=== PATIENT | male | born 1940 ===

== ENCOUNTER 2022-12-30 05:35 | Inpatient (IN) ==
[~2022-12-30 05:35] MED LIST: BUPIVACAINE **LIPOSOME/PF 13.3 MG/ML (266MG/ 20ML) VIAL (RESTRICTED) INFIL ONE; Naloxone 0.4 mg VIAL 0.4 mg/ml 1 ml VIAL IV PRN; Ondansetron 4 mg VIAL 2 MG/ML 2 ml VIAL IV PRN; fentaNYL 100 mcg/2 ml 50 MCG/ML VIAL IV PRN; oxyCODONE/Acetamin 5/325 mg TAB PO PRN
[2022-12-30] MEDS ORDERED: Buffered Lidocaine 1% SYRIN 1 ml INTRADERM ONE (06:00)
[2022-12-30] MEDS ORDERED: Lactated Ringers 1000 ml BAG 1,000 ML IV SCH (06:00)
[2022-12-30] MEDS ORDERED: Buffered Lidocaine 1% SYRIN 1 ml ONE (06:10)
[2022-12-30] MEDS ORDERED: ceFAZolin 2 GM in NS PREMIX 2 GM/100 ML BAG IVPB ONE (06:10)
[2022-12-30] MEDS ORDERED: Tranexamic Acid 1 GM/100ML BAG 2,000 MG/200 ML BAG IV ONE (06:10)
[2022-12-30] MEDS ORDERED: Propofol 10 MG/ML 20 ML BTL ONE ×3 (07:04→10:23)
[2022-12-30] MEDS ORDERED: fentaNYL 100 mcg/2 ml 50 MCG/ML VIAL ONE ×2 (07:04→16:40)
[2022-12-30] MEDS ORDERED: Midazolam 2 mg/2 ml VIAL 1 mg/ml 2 ml VIAL (2 mg) ONE (07:04)
[2022-12-30] MEDS ORDERED: Dexmedetomidine 200 mcg/2 ml 2 ml VIAL (200 mcg) ONE (07:04)
[2022-12-30] MEDS ORDERED: Lidocaine 2% PF 5 ML VIAL ONE (07:04)
[2022-12-30 07:09] LABS: Rapid COVID-19 Molecular Undetected (Undetected)
[2022-12-30] MEDS ORDERED: Bupivacaine 0.25% SDV 30 ML ONE (07:10)
[2022-12-30] MEDS ORDERED: Bupivacaine 0.25% w/EPI 10 ML SDV ONE (07:10)
[2022-12-30] MEDS ORDERED: Ondansetron 4 mg VIAL 2 MG/ML 2 ml VIAL ONE (08:16)
[2022-12-30] MEDS ORDERED: Dexamethasone IV 4 MG/ML VIAL 1 ml VIAL ONE (08:16)
[2022-12-30] MEDS ORDERED: BUPIVACAINE **LIPOSOME/PF 13.3 MG/ML (266MG/ 20ML) VIAL (RESTRICTED) INFIL ONE (09:06)
[2022-12-30] MEDS ORDERED: Phenylephrine IV 10 MG/ML 1 ml VIAL ONE (10:22)
[2022-12-30] MEDS ORDERED: Lactulose 30 ml UDC PO PRN (11:07)
[2022-12-30] MEDS ORDERED: Magnesium Hydroxide LIQ 30 ML UDC PO PRN (11:07)
[2022-12-30] MEDS ORDERED: ceFAZolin 1 GM ADVAN 1 GM in NS 0.9% 50 ML 50 ML IVPB SCH (12:00)
[2022-12-30] MEDS: Lactated Ringers 1000 ml BAG 1,000 ML IV SCH ×2 (14:27→23:33)
[2022-12-30] MEDS: ceFAZolin 1 GM in Dextrose 1 GM/50 ML BAG IVPB SCH ×2 (15:39→23:34)
[2022-12-30] MEDS ORDERED: Albuterol HFA INHALER 8 gm MDI INH PRN ×2 (16:17→16:19)
[2022-12-30] MEDS: Ondansetron 4 mg VIAL 2 MG/ML 2 ml VIAL IV PRN (16:43)
[2022-12-30] MEDS: Morphine 2 MG/ML SYRINGE IV PRN (18:33)
[2022-12-30] MEDS ORDERED: Prochlorperazine 5 mg/ml 2 ml VIAL (10 mg) IV ONE (19:39)
[2022-12-30] MEDS ORDERED: Prochlorperazine 5 mg/ml 2 ml VIAL (10 mg) ONE (19:51)
[2022-12-30] MEDS: Magnesium Hydroxide LIQ 30 ML UDC PO SCH (20:54)
[2022-12-30] MEDS ORDERED: Magnesium Hydroxide LIQ 30 ML UDC PO SCH (21:00)
[2022-12-31] MEDS: Morphine 2 MG/ML SYRINGE IV PRN ×2 (04:44→15:41)
[2022-12-31 06:20] LABS: Hematocrit 33.4 % (38-53); Hemoglobin 11.2 g/dL (13.2-16.3); Mean Platelet Volume 6.7 fL (7.5-11.2); Platelet Count 277 10^3/uL (150-450)
[2022-12-31 06:39] LABS: Calcium 8.2 mg/dL (8.6-10.3); Creatinine, Serum 0.91 mg/dL (0.67-1.17); Magnesium 1.5 mg/dL (1.9-2.7); Potassium 4.7 mmol/L (3.5-5.0); eGFR CKD-EPI 83.1 (>60)
[2022-12-31] MEDS: ceFAZolin 1 GM in Dextrose 1 GM/50 ML BAG IVPB SCH (07:35)
[2022-12-31] MEDS ORDERED: Magnesium Sulf 4 GM/100 ML IV 4,000 MG/100 ML BAG IVPB ONE (07:36)
[2022-12-31] MEDS: Tiotropium Brom/Olodaterol MDI (ACUTE) INH SCH (07:38)
[2022-12-31] MEDS: Magnesium Hydroxide LIQ 30 ML UDC PO SCH ×2 (08:27→21:36)
[2022-12-31] MEDS: Vitamin THERAPEUTIC TAB PO SCH (08:29)
[2022-12-31] MEDS ORDERED: CALCIUM GLUCONATE 1GM/50ML NS 1 GM/50 ML BAG IV ONE (09:00)
[2022-12-31] MEDS ORDERED: Polyethylene Glycol 3350 17 GM PACKET PO ONE (11:13)
[2022-12-31] MEDS ORDERED: Magnesium Hydroxide LIQ 30 ML UDC PO PRN (11:14)
[2022-12-31 13:30] LABS: Urine Appearance Clear; Urine Bilirubin Negative (Negative); Urine Blood 1+ (Negative); Urine Color Yellow; Urine Glucose Negative (Negative); Urine Ketones Negative (Negative); Urine Nitrite Negative (Negative); Urine Protein 1+(30 mg/dL) (Negative); Urine Specific Gravity 1.018 (1.002-1.030); Urine Urobilinogen Negative (Negative)
[2022-12-31 13:31] LABS: Urine Bacteria Absent (Absent); Urine Red Blood Cell 3+(>10/hpf) (Absent); Urine White Blood Cell 1+(6-10/hpf) (Absent)
[2022-12-31] MEDS: Acetaminophen IV 1 GM/100ML 1,000 MG/100 ML BAG IV SCH (21:36)
[2023-01-01] MEDS: Acetaminophen IV 1 GM/100ML 1,000 MG/100 ML BAG IV SCH ×4 (01:54→21:35)
[2023-01-01 05:59] LABS: ABS Eosinophils 0.1 10^3/uL (0.0-0.5); ABS Lymphocytes 0.7 10^3/uL (1.0-4.8); ABS Monocytes 1.2 10^3/uL (0.0-1.1); ABS Neutrophils 8.4 10^3/uL (1.5-7.6); Eosinophil % 1.2 %; Hematocrit 34.8 % (38-53); Hemoglobin 11.6 g/dL (13.2-16.3); Lymphocyte % 6.9 %; Mean Corpuscular Hemoglobin 29.3 pg (27-33); Mean Corpuscular Hgb Conc 33.4 g/dL (31-36); Mean Corpuscular Volume 87.9 fL (80-97); Mean Platelet Volume 7.1 fL (7.5-11.2); Platelet Count 285 10^3/uL (150-450); Red Blood Count 3.96 10^6/uL (4.06-5.63); Red Cell Distribution Width 15.2 % (12-17); White Blood Count 10.4 10^3/uL (3.6-10.2)
[2023-01-01 06:09] LABS: Calcium 8.7 mg/dL (8.6-10.3); Creatinine, Serum 1.06 mg/dL (0.67-1.17); Magnesium 2.4 mg/dL (1.9-2.7); Potassium 4.6 mmol/L (3.5-5.0); eGFR CKD-EPI 69.2 (>60)
[2023-01-01] MEDS: Tiotropium Brom/Olodaterol MDI (ACUTE) INH SCH (07:06)
[2023-01-01] MEDS: Vitamin THERAPEUTIC TAB PO SCH (08:37)
[2023-01-01] MEDS: Magnesium Hydroxide LIQ 30 ML UDC PO SCH ×2 (08:37→20:48)
[2023-01-01] MEDS: Lactulose 30 ml UDC PO SCH ×2 (13:12→20:48)
[2023-01-01] MEDS: Morphine 2 MG/ML SYRINGE IV PRN (13:25)
[2023-01-01] MEDS: Ondansetron ODT 4 mg TAB 4 MG TAB PO PRN (13:32)
[2023-01-01] MEDS: Ondansetron 4 mg VIAL 2 MG/ML 2 ml VIAL IV PRN (19:42)
[2023-01-01] MEDS ORDERED: Lactulose 30 ml UDC PO SCH (21:00)
[2023-01-02] MEDS: Acetaminophen IV 1 GM/100ML 1,000 MG/100 ML BAG IV SCH ×4 (02:02→20:30)
[2023-01-02 05:40] LABS: ABS Lymphocytes 0.8 10^3/uL (1.0-4.8); ABS Monocytes 1.2 10^3/uL (0.0-1.1); ABS Neutrophils 9.3 10^3/uL (1.5-7.6); ABS Nucleated RBC 0.02 10^3/ul; Eosinophil % 0.4 %; Lymphocyte % 6.8 %; Mean Corpuscular Hemoglobin 28.7 pg (27-33); Mean Corpuscular Hgb Conc 33.3 g/dL (31-36); Mean Corpuscular Volume 86.1 fL (80-97); Mean Platelet Volume 7.2 fL (7.5-11.2); Nucleated Red Blood Cells % 0.1 /100 WBC (0.0-0.4); Platelet Count 295 10^3/uL (150-450); Red Blood Count 3.84 10^6/uL (4.06-5.63); Red Cell Distribution Width 15.1 % (12-17); White Blood Count 11.3 10^3/uL (3.6-10.2)
[2023-01-02 05:58] LABS: Calcium 8.2 mg/dL (8.6-10.3); Creatinine, Serum 1.02 mg/dL (0.67-1.17); Magnesium 2.2 mg/dL (1.9-2.7); Potassium 4.8 mmol/L (3.5-5.0); eGFR CKD-EPI 72.5 (>60)
[2023-01-02] MEDS: Ondansetron 4 mg VIAL 2 MG/ML 2 ml VIAL IV PRN (06:09)
[2023-01-02] MEDS: Tiotropium Brom/Olodaterol MDI (ACUTE) INH SCH (07:53)
[2023-01-02] MEDS: Vitamin THERAPEUTIC TAB PO SCH (09:08)
[2023-01-02] MEDS: Magnesium Hydroxide LIQ 30 ML UDC PO SCH (09:10)
[2023-01-02] MEDS: Lactulose 30 ml UDC PO SCH (09:10)
[2023-01-02] MEDS ORDERED: Lactulose 30 ml UDC PO PRN (10:00)
[2023-01-02] MEDS: cefTRIAXone 1 gm/50 mL D5W 1 GM/50 ML BAG IV SCH (12:33)
[2023-01-02] MEDS: Ondansetron ODT 4 mg TAB 4 MG TAB PO PRN (18:10)
[2023-01-03] MEDS: Acetaminophen IV 1 GM/100ML 1,000 MG/100 ML BAG IV SCH ×4 (02:28→20:47)
[2023-01-03] MEDS: Ondansetron 4 mg VIAL 2 MG/ML 2 ml VIAL IV PRN ×3 (02:36→17:24)
[2023-01-03] MEDS: Tiotropium Brom/Olodaterol MDI (ACUTE) INH SCH (07:27)
[2023-01-03 07:30] LABS: Hematocrit 33.8 % (38-53); Hemoglobin 11.3 g/dL (13.2-16.3); Mean Platelet Volume 7.2 fL (7.5-11.2); Platelet Count 352 10^3/uL (150-450)
[2023-01-03] MEDS: Vitamin THERAPEUTIC TAB PO SCH (08:50)
[2023-01-03] MEDS: cefTRIAXone 1 gm/50 mL D5W 1 GM/50 ML BAG IV SCH (11:12)
[2023-01-04] MEDS: Acetaminophen IV 1 GM/100ML 1,000 MG/100 ML BAG IV SCH ×5 (02:38→22:09)
[2023-01-04 07:09] LABS: Hematocrit 32.8 % (38-53); Hemoglobin 11.2 g/dL (13.2-16.3); Mean Corpuscular Hemoglobin 29.7 pg (27-33); Mean Corpuscular Hgb Conc 34.1 g/dL (31-36); Mean Corpuscular Volume 87.2 fL (80-97); Platelet Count 372 10^3/uL (150-450); Red Blood Count 3.76 10^6/uL (4.06-5.63); Red Cell Distribution Width 14.9 % (12-17); White Blood Count 9.8 10^3/uL (3.6-10.2)
[2023-01-04 07:47] LABS: ABS Lymphocytes 0.6 10^3/uL (1.0-4.8); ABS Monocytes 1.1 10^3/uL (0.0-1.1); Eosinophil % 0.4 %; Lymphocyte % 6.5 %
[2023-01-04] MEDS: Ondansetron 4 mg VIAL 2 MG/ML 2 ml VIAL IV PRN (08:02)
[2023-01-04] MEDS: Tiotropium Brom/Olodaterol MDI (ACUTE) INH SCH (08:34)
[2023-01-04] MEDS: Vitamin THERAPEUTIC TAB PO SCH (08:50)
[2023-01-04] MEDS ORDERED: Prochlorperazine 5 mg/ml 2 ml VIAL (10 mg) IV PRN (12:45)
[2023-01-05] MEDS: Acetaminophen IV 1 GM/100ML 1,000 MG/100 ML BAG IV SCH ×2 (04:28→11:09)
[2023-01-05 05:59] LABS: Hematocrit 33.8 % (38-53); Hemoglobin 11.3 g/dL (13.2-16.3); Mean Corpuscular Hemoglobin 28.7 pg (27-33); Mean Corpuscular Hgb Conc 33.4 g/dL (31-36); Mean Platelet Volume 6.9 fL (7.5-11.2); Platelet Count 369 10^3/uL (150-450); Red Blood Count 3.93 10^6/uL (4.06-5.63); Red Cell Distribution Width 15.3 % (12-17); White Blood Count 8.4 10^3/uL (3.6-10.2)
[2023-01-05 06:07] LABS: Blood Urea Nitrogen 19 mg/dL (6-24); CO2 Carbon Dioxide 23 mmol/L (22-32); Calcium 7.7 mg/dL (8.6-10.3); Chloride 101 mmol/L (101-111); Creatinine, Serum 0.76 mg/dL (0.67-1.17); Glucose 106 mg/dL (70-100); Sodium 133 mmol/L (135-145); eGFR CKD-EPI 88.6 (>60)
[2023-01-05 06:09] LABS: Anion Gap 9 mmol/L (2-16)
[2023-01-05 07:04] LABS: ABS Eosinophils 0.1 10^3/uL (0.0-0.5); ABS Lymphocytes 0.8 10^3/uL (1.0-4.8); ABS Monocytes 1.1 10^3/uL (0.0-1.1); ABS Neutrophils 6.5 10^3/uL (1.5-7.6); ABS Nucleated RBC 0.01 10^3/ul; Eosinophil % 0.9 %; Lymphocyte % 8.9 %; Nucleated Red Blood Cells % 0.1 /100 WBC (0.0-0.4); RBC Morphology Normal (Normal)
[2023-01-05] MEDS: Tiotropium Brom/Olodaterol MDI (ACUTE) INH SCH (07:27)
[2023-01-05] MEDS: Vitamin THERAPEUTIC TAB PO SCH (08:23)
[2023-01-05 09:37] LABS: Rapid COVID-19 Molecular Undetected (Undetected)
== END 2023-01-05 12:20 | disposition swing bed (61) | DRG 469 ==
LOC: SSU 05:35 → OR 05:35
PROVIDERS: ADMIT Orthopaedic Surgery Sports Medicine; ATTEND Orthopaedic Surgery Sports Medicine